=== PATIENT | female | born 1960 | race Caucasian/White ===

== ENCOUNTER 2016-08-03 09:13 | Emergency (ER) | payer OTHER ==
[~2016-08-03] VITALS: Ht 172.7 cm; Wt 107.2 kg
[2016-08-03 09:22] VITALS: BP 178/83
[2016-08-03] MEDS ORDERED: DIAZEPAM 5 MG TABLET PO ONE (10:30)
[2016-08-03] MEDS ORDERED: DIAZEPAM 5 MG TABLET ONE (10:45)
[2016-08-03 11:11] LABS: BLOOD UREA NITROGEN 17 mg/dL (7-18)
[2016-08-03 11:54] LABS: PATH.CAST-FLAG NOT PRESENT; SPERM-FLAG NOT PRESENT; SRC-FLAG NOT PRESENT; XTAL-FLAG NOT PRESENT; YLC-FLAG NOT PRESENT
== END 2016-08-03 12:52 | disposition home or self-care (01) ==
LOC: ED 11:05
DX: S39.012A Strain of muscle, fascia and tendon of lower back, initial encounter (principal); X58.XXXA Exposure to other specified factors, initial encounter; Y93.89 Activity, other specified; Y92.89 Other specified places as the place of occurrence of the external cause; Y99.8 Other external cause status
CPT/HCPCS: 36415; 72110; 80048; 81001; 82040; 85025; 99285